=== PATIENT | female | born 1965 | race African-American/Black ===

== ENCOUNTER 2017-03-25 23:08 | Inpatient (IN) | payer OTHER ==
[~2017-03-25] VITALS: Ht 157.5 cm; Wt 76.3 kg
[2017-03-25] MEDS ORDERED: IV NORMAL SALINE 1,000ML 1,000 ML IV SCH (23:39)
[2017-03-25] MEDS ORDERED: 0.9 % SODIUM CHLORIDE 10 ML DISP.SYRIN. IV PRN (23:45)
[2017-03-25] MEDS ORDERED: ONDANSETRON PF 4 MG/2 ML VIAL. IV ONE (23:45)
[2017-03-25] MEDS ORDERED: VANCOMYCIN PER PHARMACY MC PRN (23:45)
[2017-03-25] MEDS ORDERED: HYDROmorphone PF 1 MG/ML DISP.SYRIN IV/SQ PRN (23:45)
--- NOTE | 2017-03-25 23:47 | PHYS DOC ---
Past History Past Medical History: Cancer Additional Past Medical Histor: history of breast cancer Additional Past Surgical Histo: prior thoracic laminectomy, lumpectomy sentinel node biopsy Smoking: Non-smoker Alcohol Use: None Drug Use: None Adult General Chief Complaint Chief Complaint: breast pain and swelling [facility] This is a pleasant 51-year-old female with a history of breast cancer treated with local lumpectomy, chemotherapy and radiation therapy back in 2010 who presents with a 2 day history of increased swelling redness and pain in the left breast. She noted some nipple hardness 6 days ago that resolved on its own but over the last 2 days she noted increased redness swelling and warmth to the tissue of the entire left breast. She's had subjective fevers and chills at home as well as systemic aches and pains interbody almost like the flu. She describes increasing pain across the breast with movements described as a dull ache 7 of 10. She is also noticed some redness now beginning in her right upper rest as well. She denies any trauma, denies any nipple discharge, or change in skin appearance other than redness and swelling. She does not have a specific other complaint. She denies any shortness of breath or chest pain other than in her breast tissue. She is here visiting family from [facility]. Differential diagnosis for breast pain includes but not limited to: Lipoma Fat necrosis Giant and juvenile fibroadenomas Adenoma Galactocele Lymphocytic mastitis Stromal hyperplasia Sarcoidosis Stretching of copper's ligaments Inflammatory breast cancer Ductal ectasia Hormone replacement therapy Trauma Scars from prior breast surgery thrombophelibitis This differential was considered upon arrival Review of Systems Review of Systems Constitutional: sHe has complain of subjective fevers and chills. Eyes: Denies change in visual acuity, redness, or eye pain [] HENT: Denies nasal congestion or sore throat [] Respiratory: Denies cough or shortness of breath [] Cardiovascular: No additional information not addressed in HPI [] GI: Denies abdominal pain, nausea, vomiting, bloody stools or diarrhea [] : Denies dysuria or hematuria [] Musculoskeletal: Denies back pain or joint pain [] Integument: Does complain of increased redness of her left breast with increased pain without nipple discharge. There is no vesicles or obvious signs of rash across the breast. Neurologic: Denies headache, focal weakness or sensory changes [] Endocrine: Denies polyuria or polydipsia [] Physical Exam Physical Exam Vital signs blood pressure 118/82 saturations 98% on room air Constitutional: Well developed, well nourished, no acute distress, non-toxic appearance. [] HENT: Normocephalic, atraumatic, bilateral external ears normal, oropharynx moist, no oral exudates, nose normal. [] Eyes: PERRLA, EOMI, conjunctiva normal, no discharge. [] Neck: Normal range of motion, no tenderness, supple, no stridor. [] Cardiovascular:Heart rate regular rhythm, no murmur [] Lungs & Thorax: Bilateral breath sounds clear to auscultation skin of her chest wall demonstrates significant erythema and warmth to touch it is indurated with no obvious localized area of fluctuance like an abscess. This appearance is much similar to a significant mastitis. Abdomen: Bowel sounds normal, soft, no tenderness, no masses, no pulsatile masses. [] Skin: Warm, dry, there is significant warmth tender to palpation and induration of much of the left breast. There is no nipple discharge or significant swelling of the area surrounding the nipple. No obvious trauma noted. Back: No tenderness, no CVA tenderness. [] Extremities: No tenderness, no cyanosis, no clubbing, ROM intact, no edema. [] Neurologic: Alert and oriented X 3, normal motor function, normal sensory function, no focal deficits noted. [] Psychologic: Affect normal, judgement normal, mood normal. [] Current Patient Data Lab Results Laboratory Tests Test 03/25/17 23:50 White Blood Count 11.2 x10^3/uL (4.0-11.0) H Red Blood Count 3.89 x10^6/uL (3.50-5.40) Hemoglobin 11.5 g/dL (12.0-15.5) L Hematocrit 34.4 % (36.0-47.0) L Mean Corpuscular Volume 88 fL (79-100) Mean Corpuscular Hemoglobin 30 pg (25-35) Mean Corpuscular Hemoglobin Concent 34 g/dL (31-37) Red Cell Distribution Width 12.8 % (11.5-14.5) Platelet Count 196 x10^3/uL (140-400) Neutrophils (%) (Auto) 85 % (31-73) H Lymphocytes (%) (Auto) 10 % (24-48) L Monocytes (%) (Auto) 4 % (0-9) Eosinophils (%) (Auto) 0 % (0-3) Basophils (%) (Auto) 1 % (0-3) Neutrophils # (Auto) 9.5 x10^3uL (1.8-7.7) H Lymphocytes # (Auto) 1.1 x10^3/uL (1.0-4.8) Monocytes # (Auto) 0.5 x10^3/uL (0.0-1.1) Eosinophils # (Auto) 0.0 x10^3/uL (0.0-0.7) Basophils # (Auto) 0.1 x10^3/uL (0.0-0.2) Erythrocyte Sedimentation Rate Pending EKG EKG [] Radiology/Procedures Radiology/Procedures [] Course & Med Decision Making Course & Med Decision Making Pertinent Labs and Imaging studies reviewed. (See chart for details) I reviewed patient's nursing notes on my history and physical findings I concern initially upon presentation considering causes of breast pain was mastitis. Given her history of breast cancer and inflammatory mastitis is also possible. Patient does have an elevated leukocytosis based on initial CBC. Given her chills systemic complaints and the fact she is here visiting a family friend I advised her to admission to the hospital be a very appropriate. She's been given a dose of vancomycin here in the emergency department she'll be taken upstairs where they'll continue to evaluate her breast is. I ordered an ultrasound to make sure this on a collection of fluid that might need to be I&D either by a general surgeon in case her is a fluid collection are located underneath the skin teacher. Patient is happy with disposition her pain isn't better control given IV fentanyl fluids antiemetics and antibiotics. I did call internal medicine for possible admission. Real Estate Broker note: Dr. KAMI Ross patient initially at 12:26 AM Real Estate Broker called at of the service internal medicine service Consult called back at 12:26 AM Discussed the case I presented and they agreed with admission. Time of acceptance 12:26 AM [] Impression: Mastitis, cellulitis of the breast tissue. Leukocytosis secondary to infection. Disposition: Admission to the hospital under the care of internal medicine. Any ultrasound of the breast possible evaluation by general surgery if there is an abscess that needs to be drained. Dragon Disclaimer Dragon Disclaimer This chart was dictated in whole or in part using Voice Recognition software in a busy, high-work load, and often noisy Emergency Department environment. It may contain unintended and wholly unrecognized errors or omissions. Departure Departure: Impression: Primary Impression: Mastitis in female Additional Impression: Cellulitis of left breast Disposition: ADMITTED INPATIENT Condition: IMPROVED Problem Qualifiers TALHA PRADO MD Mar 25, 2017 23:46
[2017-03-26 00:15] LABS: BASO # 0.1 x10^3/uL (0.0-0.2); BASO % 1 % (0-3); EOS % 0 % (0-3); HEMATOCRIT 34.4 % (36.0-47.0); HEMOGLOBIN 11.5 g/dL (12.0-15.5); LYMPH # 1.1 x10^3/uL (1.0-4.8); LYMPH % 10 % (24-48); MEAN CORPUSCULAR HEMOGLOBIN 30 pg (25-35); MEAN CORPUSCULAR HGB CONC 34 g/dL (31-37); MEAN CORPUSCULAR VOLUME 88 fL (79-100); MONO # 0.5 x10^3/uL (0.0-1.1); MONO % 4 % (0-9); NEUT # 9.5 x10^3uL (1.8-7.7); NEUT % 85 % (31-73); PLATELET COUNT 196 x10^3/uL (140-400); RED BLOOD COUNT 3.89 x10^6/uL (3.50-5.40); RED CELL DISTRIBUTION WIDTH 12.8 % (11.5-14.5); WHITE BLOOD COUNT 11.2 x10^3/uL (4.0-11.0)
[2017-03-26 00:22] LABS: C REACTIVE PROTEIN 131.3 mg/L (0-3.3); CALCIUM 9.1 mg/dL (8.5-10.1); CREATININE 1.4 mg/dL (0.6-1.0); GFR 39.6; POTASSIUM 3.2 mmol/L (3.5-5.1)
[2017-03-26] MEDS ORDERED: VANCOMYCIN 1 GM VIAL. ONE (00:23)
[2017-03-26] MEDS ORDERED: IV NORMAL SALINE 500ML 500 ML ONE (00:23)
[2017-03-26] MEDS ORDERED: VANCOMYCIN 2 GM in IV NORMAL SALINE 500ML 500 ML IV ONE (00:30)
[2017-03-26] MEDS ORDERED: ONDANSETRON PF 4 MG/2 ML VIAL. IV PRN (00:45)
[2017-03-26] MEDS ORDERED: fentaNYL PF 100 MCG/2 ML VIAL IV ONE (01:00)
[2017-03-26 01:20] LABS: SEDIMENTATION RATE 27 (0-25)
--- NOTE | 2017-03-26 01:37 | RAD ---
Ultrasound of the left breast 03/26/2017 CLINICAL HISTORY: History of breast cancer in 2011 post lumpectomy, radiation and chemotherapy treatment. Recent development of redness and pain in the left breast with elevated white blood count. TECHNIQUE: Real-time ultrasound examination of the left breast in the area of the patient's redness was performed. Multiple images were obtained. FINDINGS: No previous imaging studies are available for comparison. Within the left breast at the 1:30 o'clock position a oval-shaped anechoic structure is seen which measures 3.3 x 1.8 x 0.9 cm and longitudinal, transverse and AP dimensions. It is 1 cm deep to the skin surface. This could represent a seroma. An abscess is not excluded. Edema is seen within the upper outer quadrant of the left breast. No solid mass or additional abnormal fluid collection is seen. The left axilla is within normal limits. IMPRESSION: Edema is seen within the upper outer quadrant of the left breast. A 3.3 cm fluid collection is seen at the 1:30 o'clock position which may represent a seroma. An abscess is not excluded. Electronically signed by: Alex Rojas MD (03/26/2017 1:33 AM) [facility] [place]
[2017-03-26 02:05] VITALS: BP 110/55
[2017-03-26] MEDS ORDERED: VANCOMYCIN PER PHARMACY MC PRN ×2 (02:15→17:30)
[2017-03-26] MEDS: ACETAMINOPHEN 325 MG TABLET PO PRN ×3 (02:31→18:14)
[2017-03-26 06:10] VITALS: BP 106/58
[2017-03-26] MEDS: fentaNYL PF 100 MCG/2 ML VIAL IV PRN ×2 (10:14→20:03)
--- NOTE | 2017-03-26 12:03 | RAD ---
Indication small fluid collection left axilla. Assess for potential abscess. Note is made that the patient's left breast is erythematous. The breast is, additionally, much firmer than the opposite breast. Physical findings are suggestive of mastitis. Inflammatory breast cancer is not excluded. Note is made of a left breast ultrasound approximately 10 hours previously. On that examination a 3 cm fluid collection was seen in the area of the left axilla. Note is made that the patient has a history of left breast cancer with lumpectomy, radiation and chemotherapy. Preliminary ultrasound images were obtained and confirm the fluid collection seen previously in the left axilla Image guided sampling of the fluid collection in the left axilla was discussed with the patient. The risks of infection and bleeding were outlined. The small possibility of pneumothorax was also outlined. The patient understood the risks associated with the procedure and wished to proceed. The skin was prepped and draped in the routine fashion. Local anesthesia was obtained with non preservative 1% lidocaine. A 14-gauge needle was introduced into the fluid collection. Approximately 3 cc of slightly bloody fluid was withdrawn. The fluid did not appear overtly purulent. The fluid was transferred to pathology for Gram stain and culture and sensitivity. The patient tolerated the procedure unremarkably. IMPRESSION: Successful aspiration of fluid collection in the left axilla under ultrasound guidance
[2017-03-26 13:09] VITALS: BP 103/62
--- NOTE | 2017-03-26 17:37 | PDOC1 ---
History of Present Illness Reason for Visit: left mastitis with an abscess drained under ultrasound ghuidance History of Present Illness The patient was seen in the ER with pain redness involving her left breast and was diagnosed with Mastitis Chief Complaint: BREAST PROBLEM Allergies: Coded Allergies: morphine (Verified Allergy, Intermediate, 03/26/17) Past Medical History Cardiac: No pertinent hx Pulmonary: No pertinent hx GI: No pertinent hx Musculoskeletal: low back pain, Other (she underwent lumbar laminectomy) Infectious disease: Other (left breast mastitis) Dermatology: Other (left breast mastitis) Review of Systems Review Of Systems Fourteen system , review of systems has been reviewed. See HPI for pertinent positives and negative responses, other jimenez all other systems are negative, non pertinent or non contributory Allergies: Coded Allergies: morphine (Verified Allergy, Intermediate, 03/26/17) Medications Current Medications Vancomycin HCl (Vanco Per Pharmacy) 1 each PRN DAILY PRN MC PER PHARMACY; Start 03/25/17 at 23:45; Stop 03/26/17 at 02:10; Status DC Hydromorphone HCl (Dilaudid) 1 mg PRN Q15MIN PRN IV/SQ PAIN GREATER THAN 3/10; Start 03/25/17 at 23:45; Stop 03/26/17 at 00:27; Status DC Sodium Chloride 1,000 ml @ 1,000 mls/hr Q1H IV Last administered on 03/26/17 00:30; Start 03/25/17 at 23:39; Stop 03/26/17 at 00:38; Status DC Sodium Chloride (Normal Saline Flush) 10 ml QSHIFT PRN IV AFTER MEDS AND BLOOD DRAWS; Start 03/25/17 at 23:45 Ondansetron HCl (Zofran) 4 mg 1X ONCE IV Last administered on 03/26/17 00:30; Start 03/25/17 at 23:45; Stop 03/26/17 at 00:07; Status DC Vancomycin HCl 2 gm/Sodium Chloride 500 ml @ 250 mls/hr 1X ONCE IV Last administered on 03/26/17 00:30; Start 03/26/17 at 00:30; Stop 03/26/17 at 02:29; Status DC Sodium Chloride 500 ml @ As Directed STK-MED ONCE .ROUTE ; Start 03/26/17 at 00: 23; Stop 03/26/17 at 00:24; Status DC Vancomycin HCl 1 gm STK-MED ONCE .ROUTE ; Start 03/26/17 at 00:23; Stop 03/26/17 at 00:24; Status DC Fentanyl Citrate (Fentanyl 2ml Vial) 50 mcg 1X ONCE IV Last administered on 01:00; Start 03/26/17 at 01:00; Stop 03/26/17 at 01:01; Status DC Ondansetron HCl (Zofran) 4 mg PRN Q4HRS PRN IV NAUSEA/VOMITING; Start 03/26/17 at 00:45; Stop 03/27/17 at 00:44 Fentanyl Citrate (Fentanyl 2ml Vial) 50 mcg PRN Q2HR PRN IV SEVERE PAIN Last administered on 03/26/17 10:14; Start 03/26/17 at 00:45; Stop 03/27/17 at 00:44 Vancomycin HCl (Vanco Per Pharmacy) 1 each PRN DAILY PRN MC SEE COMMENTS Last administered on 03/26/17 02:37; Start 03/26/17 at 02:15 Acetaminophen (Tylenol) 650 mg PRN Q6HRS PRN PO PAIN / TEMP Last administered on 03/26/17 11:52; Start 03/26/17 at 02:15 Vancomycin HCl 1.25 gm/Sodium Chloride 250 ml @ 167 mls/hr Q24H IV ; Start 03/26 at 22:00 Vancomycin HCl 1 each 1X ONCE MC ; Start 03/27/17 at 21:30; Stop 03/27/17 at 21: 31 Active Scripts Active Reported No Known Medications Prior To Admisstion (Info) Each 1 Each MC Exam Vital Signs Vital Signs Date Time Temp Pulse Resp B/P (MAP) Pulse Ox O2 Delivery O2 Flow Rate FiO2 03/26/17 13:09 99.5 78 20 103/62 (76) 97 Room Air General Appearance: Alert, Oriented X3, Cooperative HEENT: Atraumatic, PERRLA Respiratory: Clear to auscultation Heart: Regular rate Abdominal: Normal bowel sounds Extremities: No clubbing, No cyanosis, No edema Neuro: Normal gait, Normal speech, Strength at 5/5 X4 ext, Normal tone, Sensation intact, Cranial nerves 3-12 NL, Reflexes 2+ Psych/Mental Status: Mental status NL, Mood NL Assessment/Plan Assessment/Plan Left breast mastitis on I V Vancomycin will arrange for a PICC line for her to be treated as an outpatient and to follow up with Dr Leiva as an outpatient to r/o the possibility of breast cancer recurrence COURSE Allergies Coded Allergies Type Severity Reaction Last Updated Verified morphine Allergy Intermediate 03/26/17 Yes Laboratory Tests Test 03/25/17 23:50 White Blood Count 11.2 x10^3/uL (4.0-11.0) Red Blood Count 3.89 x10^6/uL (3.50-5.40) Hemoglobin 11.5 g/dL (12.0-15.5) Hematocrit 34.4 % (36.0-47.0) Mean Corpuscular Volume 88 fL (79-100) Mean Corpuscular Hemoglobin 30 pg (25-35) Mean Corpuscular Hemoglobin Concent 34 g/dL (31-37) Red Cell Distribution Width 12.8 % (11.5-14.5) Platelet Count 196 x10^3/uL (140-400) Neutrophils (%) (Auto) 85 % (31-73) Lymphocytes (%) (Auto) 10 % (24-48) Monocytes (%) (Auto) 4 % (0-9) Eosinophils (%) (Auto) 0 % (0-3) Basophils (%) (Auto) 1 % (0-3) Neutrophils # (Auto) 9.5 x10^3uL (1.8-7.7) Lymphocytes # (Auto) 1.1 x10^3/uL (1.0-4.8) Monocytes # (Auto) 0.5 x10^3/uL (0.0-1.1) Eosinophils # (Auto) 0.0 x10^3/uL (0.0-0.7) Basophils # (Auto) 0.1 x10^3/uL (0.0-0.2) Erythrocyte Sedimentation Rate 27 (0-25) Sodium Level 141 mmol/L (136-145) Potassium Level 3.2 mmol/L (3.5-5.1) Chloride Level 104 mmol/L (98-107) Carbon Dioxide Level 29 mmol/L (21-32) Anion Gap 8 (6-14) Blood Urea Nitrogen 17 mg/dL (7-20) Creatinine 1.4 mg/dL (0.6-1.0) Estimated GFR (Cockcroft-Gault) 39.6 Glucose Level 105 mg/dL (70-99) Calcium Level 9.1 mg/dL (8.5-10.1) C-Reactive Protein 131.3 mg/L (0-3.3) Current Medications Medications (Trade) Dose Ordered Sig/Eloisa Route PRN Reason Start Time Stop Time Status Last Admin Dose Admin Vancomycin HCl (Vanco Per Pharmacy) 1 each PRN DAILY PRN MC PER PHARMACY 03/25/17 23:45 03/26/17 02:10 DC Hydromorphone HCl (Dilaudid) 1 mg PRN Q15MIN PRN IV/SQ PAIN GREATER THAN 3/10 03/25/17 23:45 03/26/17 00:27 DC Sodium Chloride 1,000 ml @ 1,000 mls/hr Q1H IV 03/25/17 23:39 03/26/17 00:38 DC 03/26/17 00:30 Sodium Chloride (Normal Saline Flush) 10 ml QSHIFT PRN IV AFTER MEDS AND BLOOD DRAWS 03/25/17 23:45 Ondansetron HCl (Zofran) 4 mg 1X ONCE IV 03/25/17 23:45 03/26/17 00:07 DC 03/26/17 00:30 Vancomycin HCl 2 gm/Sodium Chloride 500 ml @ 250 mls/hr 1X ONCE IV 03/26/17 00:30 03/26/17 02:29 DC 03/26/17 00:30 Sodium Chloride 500 ml @ As Directed STK-MED ONCE .ROUTE 03/26/17 00:23 03/26/17 00:24 DC Vancomycin HCl 1 gm STK-MED ONCE .ROUTE 03/26/17 00:23 03/26/17 00:24 DC Fentanyl Citrate (Fentanyl 2ml Vial) 50 mcg 1X ONCE IV 03/26/17 01:00 03/26/17 01:01 DC 03/26/17 01:00 Ondansetron HCl (Zofran) 4 mg PRN Q4HRS PRN IV NAUSEA/VOMITING 03/26/17 00:45 03/27/17 00:44 Fentanyl Citrate (Fentanyl 2ml Vial) 50 mcg PRN Q2HR PRN IV SEVERE PAIN 03/26/17 00:45 03/27/17 00:44 03/26/17 10:14 Vancomycin HCl (Vanco Per Pharmacy) 1 each PRN DAILY PRN MC SEE COMMENTS 03/26/17 02:15 03/26/17 02:37 Acetaminophen (Tylenol) 650 mg PRN Q6HRS PRN PO PAIN / TEMP 03/26/17 02:15 03/26/17 11:52 Vancomycin HCl 1.25 gm/Sodium Chloride 250 ml @ 167 mls/hr Q24H IV 03/26/17 22:00 Vancomycin HCl 1 each 1X ONCE MC 03/27/17 21:30 03/27/17 21:31 Orders Procedure Category Date Status Time Vital Signs ER 03/25/17 Transmitted 23:39 Saline Lock ER 03/25/17 Transmitted 23:39 Cbc W Autodiff LAB 03/25/17 Complete 23:39 Sedimentation Rate LAB 03/25/17 Complete 23:39 Basic Metabolic Panel LAB 03/25/17 Complete 23:39 Blood Culture ADONIS 03/25/17 In Process 23:39 Vancomycin Per PHA 03/25/17 Complete Pharmacy (Vanco Per 23:45 Pulse Oximetry: FLAQUITA 03/25/17 In Process Standing Order 23:39 Hydromorphone Pf PHA 03/25/17 Complete (Dilaudid) 23:45 Iv Normal Saline PHA 03/25/17 Complete 1,000ml (Iv Sodium 23:39 0.9 % Sodium Chloride PHA 03/25/17 In Process (Normal Saline Flu 23:45 Ondansetron Pf PHA 03/25/17 Complete (Zofran) 23:45 C Reactive Protein LAB 03/25/17 Complete 23:39 Breast Left US 03/25/17 Resulted 23:39 Vancomycin PHA 03/26/17 Complete 00:30 Iv Normal Saline PHA 03/26/17 Complete 500ml (Iv Sodium 00:23 Vancomycin PHA 03/26/17 Complete 00:23 Fentanyl Pf (Fentanyl PHA 03/26/17 Complete 2ml Vial) 01:00 [place] Order ADT 03/26/17 Transmitted 00:33 Code Status CODE 03/26/17 Transmitted 00:33 Vital Signs, Per FLAQUITA 03/26/17 In Process Protocol 00:33 Regular DIET 03/26/17 Transmitted Breakfast Ambulate Ad Marialuisa FLAQUITA 03/26/17 In Process 00:33 Ondansetron Pf PHA 03/26/17 In Process (Zofran) 00:45 Fentanyl Pf (Fentanyl PHA 03/26/17 In Process 2ml Vial) 00:45 Consult Physician By CONS 03/26/17 Transmitted Name 01:53 Pneumatic Compression FLAQUITA 03/26/17 In Process Device 02:02 Wound Care Consult CONS 03/26/17 Transmitted 02:00 Vancomycin Per PHA 03/26/17 In Process Pharmacy (Vanco Per 02:15 Acetaminophen PHA 03/26/17 In Process (Tylenol) 02:15 Vancomycin PHA 03/26/17 In Process 22:00 Vancomycin Trough PHA 03/27/17 In Process Level 21:30 Vancomycin, Trough LAB 03/27/17 Verified 21:30 Free Text Nursing FLAQUITA 03/26/17 In Process Order 07:31 Us Guided Injection US 03/26/17 Transmitted 08:57 Admit Orders ADT 03/26/17 Transmitted 09:[address]/Aspi/Bx US 03/26/17 Resulted 09:07 Anaerobic/Aerobic/Gram ADONIS 03/26/17 In Process Stain 11:00 Vital Signs Date Time Temp Pulse Resp B/P (MAP) Pulse Ox O2 Delivery O2 Flow Rate FiO2 03/26/17 13:09 99.5 78 20 103/62 (76) 97 Room Air BLAKE HAYES MD Mar 26, 2017 17:37
[2017-03-26 18:38] VITALS: BP 122/78
--- NOTE | 2017-03-26 21:27 | RAD ---
Indication: PICC line placement. Time of exam 8:48 PM No prior studies are available for comparison. The right upper extremity PICC line appears to have the tip overlying the right atrium. No pneumothorax is identified. The lungs are clear. IMPRESSION: PICC line appears to have the tip overlying the mid right atrium. Electronically signed by: Andreas Chowdhury MD (03/26/2017 9:24 PM) [facility]
[2017-03-26] MEDS ORDERED: VANCOMYCIN 1.25 GM in IV NORMAL SALINE 250ML 250 ML IV SCH (22:00)
[2017-03-26 22:23] VITALS: BP 130/73
[2017-03-26] MEDS ORDERED: diphenhydrAMINE 50 MG/ML VIAL ONE (22:47)
[2017-03-26] MEDS ORDERED: diphenhydrAMINE 50 MG/ML VIAL IVP ONE (23:00)
[2017-03-27] MEDS ORDERED: PIP/TAZO PER PHARMACY MC PRN (01:15)
[2017-03-27] MEDS ORDERED: PIPERACILLIN/TAZOBACTAM 3.375 GM VIAL IV ONE ×2 (01:26→04:52)
[2017-03-27] MEDS ORDERED: IV NORMAL SALINE 50ML 50 ML ONE ×2 (01:27→04:52)
[2017-03-27] MEDS: PIPERACILLIN/TAZOBACTAM 3.375 GM in IV NORMAL SALINE 50ML 50 ML IV SCH ×3 (01:32→12:04)
[2017-03-27] MEDS: ACETAMINOPHEN 325 MG TABLET PO PRN (01:38)
--- NOTE | 2017-03-27 01:44 | DISCH ---
DISCHARGE INSTRUCTIONS-DC Condition on Discharge Condition on Discharge: Stable Problems: Activity after Discharge Activity Instructions for Disc: Activity as tolerated Diet after Discharge Diet after Discharge: Regular Checks after Discharge Checks after discharge: Check your Temp as needed Contacting the DRDaylin after DC Call your doctor for: If your condition worsens Follow-Up Follow up with: PCP after return to ALEX Desir MD Mar 27, 2017 01:44
--- NOTE | 2017-03-27 01:51 | PDOC3 ---
Discharge Summary Discharge Summary Date of Admission Date of Admission: Mar 26, 2017 at 00:34 Admitting Diagnosis Left breast mastitis Hypokalemia Date of Discharge: Mar 27, 2017 Discharge Diagnosis Left breast mastitis, Group B strep Hypokalemia, resolved Laboratory Findings Laboratory Tests Test 03/25/17 23:50 03/27/17 05:32 White Blood Count 11.2 x10^3/uL (4.0-11.0) 7.1 x10^3/uL (4.0-11.0) Red Blood Count 3.89 x10^6/uL (3.50-5.40) 3.85 x10^6/uL (3.50-5.40) Hemoglobin 11.5 g/dL (12.0-15.5) 11.5 g/dL (12.0-15.5) Hematocrit 34.4 % (36.0-47.0) 34.0 % (36.0-47.0) Mean Corpuscular Volume 88 fL (79-100) 88 fL (79-100) Mean Corpuscular Hemoglobin 30 pg (25-35) 30 pg (25-35) Mean Corpuscular Hemoglobin Concent 34 g/dL (31-37) 34 g/dL (31-37) Red Cell Distribution Width 12.8 % (11.5-14.5) 12.8 % (11.5-14.5) Platelet Count 196 x10^3/uL (140-400) 194 x10^3/uL (140-400) Neutrophils (%) (Auto) 85 % (31-73) 68 % (31-73) Lymphocytes (%) (Auto) 10 % (24-48) 23 % (24-48) Monocytes (%) (Auto) 4 % (0-9) 9 % (0-9) Eosinophils (%) (Auto) 0 % (0-3) 1 % (0-3) Basophils (%) (Auto) 1 % (0-3) 0 % (0-3) Neutrophils # (Auto) 9.5 x10^3uL (1.8-7.7) 4.8 x10^3uL (1.8-7.7) Lymphocytes # (Auto) 1.1 x10^3/uL (1.0-4.8) 1.6 x10^3/uL (1.0-4.8) Monocytes # (Auto) 0.5 x10^3/uL (0.0-1.1) 0.6 x10^3/uL (0.0-1.1) Eosinophils # (Auto) 0.0 x10^3/uL (0.0-0.7) 0.0 x10^3/uL (0.0-0.7) Basophils # (Auto) 0.1 x10^3/uL (0.0-0.2) 0.0 x10^3/uL (0.0-0.2) Erythrocyte Sedimentation Rate 27 (0-25) Sodium Level 141 mmol/L (136-145) 144 mmol/L (136-145) Potassium Level 3.2 mmol/L (3.5-5.1) 3.6 mmol/L (3.5-5.1) Chloride Level 104 mmol/L (98-107) 108 mmol/L (98-107) Carbon Dioxide Level 29 mmol/L (21-32) 29 mmol/L (21-32) Anion Gap 8 (6-14) 7 (6-14) Blood Urea Nitrogen 17 mg/dL (7-20) 8 mg/dL (7-20) Creatinine 1.4 mg/dL (0.6-1.0) 1.3 mg/dL (0.6-1.0) Estimated GFR (Cockcroft-Gault) 39.6 52.3 Glucose Level 105 mg/dL (70-99) 101 mg/dL (70-99) Calcium Level 9.1 mg/dL (8.5-10.1) 9.2 mg/dL (8.5-10.1) C-Reactive Protein 131.3 mg/L (0-3.3) BUN/Creatinine Ratio 6 (6-20) Total Bilirubin 0.5 mg/dL (0.2-1.0) Aspartate Amino Transf (AST/SGOT) 14 U/L (15-37) Alanine Aminotransferase (ALT/SGPT) 19 U/L (14-59) Alkaline Phosphatase 78 U/L (46-116) Total Protein 7.3 g/dL (6.4-8.2) Albumin 3.3 g/dL (3.4-5.0) Albumin/Globulin Ratio 0.8 (1.0-1.7) Hospital Course Pt was admitted through ER with mild leukocytosis and erythema/pain of the left breast. She has a hx breast cancer of the left breast with radiation treatment in 2010. She reports her last mammogram was in November and was normal. She was admitted and underwent u/s guided drainage of a 3 cm fluid collection in the left axilla. The culture grew out scant Group B strep. Her blood cultures have shown no growth to date. The erythema was subjectively improved today, and her fever has resolved. Her WBC was down to normal this morning. She initially had a right PICC placed in anticipation of needing several days of Vancomycin, but that is not necessary given the GBS culture, and we will d/c the PICC and send her home on Augmentin. I did discuss the case with ID specialist Dr. Vela complaint investigations officer for [facility], and he agreed that Augmentin would be an appropriate treatment, and that she does not require outpatient IV antibiotics. Pt is instructed to proceed directly to the ER if she has return of fever, worsening pain or swelling, chills, swelling of the right arm, or any other concerns. She will need close f/u with her PCP if this resolves. If symptoms not markedly improved within a couple days pt recommended to be seen locally prior to returning to [place]. She v/u. Incidentally, her potassium was slightly low on admission, and was normal this morning. She does not take any home medications. Her BG was 105 on admission, and now 101. I have advised that she have formal testing for DM w/ her PCP. Pt declines any pain medication at discharge. Condition at Discharge: Stable Home Meds Reported Medications Info (NO KNOWN MEDICATIONS PRIOR TO ADMISSTION) Each, 1 EACH MC, EACH 03/26/17 Inpatient Meds Current Medications Vancomycin HCl (Vanco Per Pharmacy) 1 each PRN DAILY PRN MC PER PHARMACY; Start 03/25/17 at 23:45; Stop 03/26/17 at 02:10; Status DC Hydromorphone HCl (Dilaudid) 1 mg PRN Q15MIN PRN IV/SQ PAIN GREATER THAN 3/10; Start 03/25/17 at 23:45; Stop 03/26/17 at 00:27; Status DC Sodium Chloride 1,000 ml @ 1,000 mls/hr Q1H IV Last administered on 03/26/17 00:30; Start 03/25/17 at 23:39; Stop 03/26/17 at 00:38; Status DC Sodium Chloride (Normal Saline Flush) 10 ml QSHIFT PRN IV AFTER MEDS AND BLOOD DRAWS; Start 03/25/17 at 23:45 Ondansetron HCl (Zofran) 4 mg 1X ONCE IV Last administered on 03/26/17 00:30; Start 03/25/17 at 23:45; Stop 03/26/17 at 00:07; Status DC Vancomycin HCl 2 gm/Sodium Chloride 500 ml @ 250 mls/hr 1X ONCE IV Last administered on 03/26/17 00:30; Start 03/26/17 at 00:30; Stop 03/26/17 at 02:29; Status DC Sodium Chloride 500 ml @ As Directed STK-MED ONCE .ROUTE ; Start 03/26/17 at 00: 23; Stop 03/26/17 at 00:24; Status DC Vancomycin HCl 1 gm STK-MED ONCE .ROUTE ; Start 03/26/17 at 00:23; Stop 03/26/17 at 00:24; Status DC Fentanyl Citrate (Fentanyl 2ml Vial) 50 mcg 1X ONCE IV Last administered on 01:00; Start 03/26/17 at 01:00; Stop 03/26/17 at 01:01; Status DC Ondansetron HCl (Zofran) 4 mg PRN Q4HRS PRN IV NAUSEA/VOMITING; Start 03/26/17 at 00:45; Stop 03/27/17 at 00:44; Status DC Fentanyl Citrate (Fentanyl 2ml Vial) 50 mcg PRN Q2HR PRN IV SEVERE PAIN Last administered on 03/26/17 20:03; Start 03/26/17 at 00:45; Stop 03/27/17 at 00:44; Status DC Vancomycin HCl (Vanco Per Pharmacy) 1 each PRN DAILY PRN MC SEE COMMENTS Last administered on 03/26/17 02:37; Start 03/26/17 at 02:15 Acetaminophen (Tylenol) 650 mg PRN Q6HRS PRN PO PAIN / TEMP Last administered on 03/27/17 01:38; Start 03/26/17 at 02:15 Vancomycin HCl 1.25 gm/Sodium Chloride 250 ml @ 167 mls/hr Q24H IV Last administered on 03/26/17 21:25; Start 03/26/17 at 22:00 Vancomycin HCl 1 each 1X ONCE MC ; Start 03/27/17 at 21:30; Stop 03/27/17 at 21: 31 Vancomycin HCl (Vanco Per Pharmacy) 1 each PRN DAILY PRN MC SEE COMMENTS; Start 03/26/17 at 17:30; Status UNV Diphenhydramine HCl (Benadryl) 50 mg STK-MED ONCE .ROUTE ; Start 03/26/17 at 22: 47; Stop 03/26/17 at 22:48; Status DC Diphenhydramine HCl (Benadryl) 25 mg 1X ONCE IVP Last administered on 22:55; Start 03/26/17 at 23:00; Stop 03/26/17 at 23:01; Status DC Piperacillin Sod/ Tazobactam Sod (Zosyn Per Pharmacy) 1 each PRN DAILY PRN MC SEE COMMENTS; Start 03/27/17 at 01:15 Piperacillin Sod/ Tazobactam Sod 3.375 gm/Sodium Chloride 50 ml @ 100 mls/hr Q6HRS IV Last administered on 03/27/17 12:04; Start 03/27/17 at 01:30 Piperacillin Sod/ Tazobactam Sod (Zosyn) 3.375 gm STK-MED ONCE IV ; Start at 01:26; Stop 03/27/17 at 01:27; Status DC Sodium Chloride 50 ml @ As Directed STK-MED ONCE .ROUTE ; Start 03/27/17 at 01:27 ; Stop 03/27/17 at 01:28; Status DC Piperacillin Sod/ Tazobactam Sod (Zosyn) 3.375 gm STK-MED ONCE IV ; Start at 04:52; Stop 03/27/17 at 04:53; Status DC Sodium Chloride 50 ml @ As Directed STK-MED ONCE .ROUTE ; Start 03/27/17 at 04:52 ; Stop 03/27/17 at 04:53; Status DC Active Scripts Active Reported No Known Medications Prior To Admisstion (Info) Each 1 Each MC Activity: as tolerated Diet: Regular Follow-up Plan As above, f/u with PCP when returned to [place], or with urgent care here locally if things not improving rapidly enough. ALEX KWAN MD Mar 27, 2017 01:51
[2017-03-27 05:44] VITALS: BP 122/63
[2017-03-27 05:47] LABS: BASO % 0 % (0-3); EOS % 1 % (0-3); HEMOGLOBIN 11.5 g/dL (12.0-15.5); LYMPH # 1.6 x10^3/uL (1.0-4.8); LYMPH % 23 % (24-48); MEAN CORPUSCULAR HEMOGLOBIN 30 pg (25-35); MEAN CORPUSCULAR HGB CONC 34 g/dL (31-37); MEAN CORPUSCULAR VOLUME 88 fL (79-100); MONO # 0.6 x10^3/uL (0.0-1.1); MONO % 9 % (0-9); NEUT # 4.8 x10^3uL (1.8-7.7); NEUT % 68 % (31-73); PLATELET COUNT 194 x10^3/uL (140-400); RED BLOOD COUNT 3.85 x10^6/uL (3.50-5.40); RED CELL DISTRIBUTION WIDTH 12.8 % (11.5-14.5); WHITE BLOOD COUNT 7.1 x10^3/uL (4.0-11.0)
[2017-03-27 06:04] LABS: ALBUMIN 3.3 g/dL (3.4-5.0); ALBUMIN/GLOBULIN RATIO 0.8 (1.0-1.7); CALCIUM 9.2 mg/dL (8.5-10.1); CREATININE 1.3 mg/dL (0.6-1.0); GFR 52.3; POTASSIUM 3.6 mmol/L (3.5-5.1); TOTAL BILIRUBIN 0.5 mg/dL (0.2-1.0); TOTAL PROTEIN 7.3 g/dL (6.4-8.2)
[2017-03-27 11:30] VITALS: BP 134/89
[2017-03-27] MEDS ORDERED: AMOX1TAB61 PO (14:11)
[2017-03-27 14:30] VITALS: BP 124/75
== END 2017-03-27 14:54 | disposition home or self-care (01) | DRG 601 ==
LOC: ER 23:08 → UNDOADMOB 03-26 00:33 → 1 SOUTH 03-26 00:33 → OBSVTOIN 03-26 00:34
PROVIDERS: ADMIT Internal Medicine; ATTEND Internal Medicine
PROC: 0X953ZZ Drainage of Left Axilla, Percutaneous Approach (ICD-10-PCS; principal; 2017-03-26)
PROC: 02H633Z Insertion of Infusion Device into Right Atrium, Percutaneous Approach (ICD-10-PCS; 2017-03-26)
DX: N61.1 Abscess of the breast and nipple (principal); E87.6 Hypokalemia; B95.1 Streptococcus, group B, as the cause of diseases classified elsewhere; Z88.5 Allergy status to narcotic agent; Z85.3 Personal history of malignant neoplasm of breast; Z79.899 Other long term (current) drug therapy; Z79.1 Long term (current) use of non-steroidal anti-inflammatories (NSAID); Z79.82 Long term (current) use of aspirin; Z92.21 Personal history of antineoplastic chemotherapy
CPT/HCPCS: 19000; 36415; 71010; 76641; 76942; 80048; 80053; 85027; 85651; 86140; 87040; 87071; 87075; 96365; 96375; J1200; J2405; J2543; J3010; J3370; J7040; J7050; 99285-25; J7030